=== PATIENT | male | born 1950 | race Caucasian/White ===

== ENCOUNTER 2018-05-31 09:40 | Emergency (ER) | payer MEDICARE, OTHER ==
--- NOTE | 2018-05-31 10:09 | ED Physician Documentation ---
PD HPI ALTERED MENTAL STATUS - Stated complaint Stated Complaint: CAN'T THINK STRAIGHT, AGGITATED - Chief complaint Chief Complaint: Cardiac - History obtained from History obtained from: Patient - History of Present Illness Timing - onset: Today Timing - duration: Hours Timing - details: Gradual onset (he says he was feeling some pressure feeling in sinuses and had taken some Atifed and Nuquil meds last evening. Today was feeling pressure frontal still and felt somewhat confused/foggy. No focal deficit. Able to talk coherently and ambulatory without ataxia. Took BP and it was elevated at 220/120. His usual is 130-140 ssytolic.) Quality / character: Confused (felt foggy/confused, but did not notice aphasia per se.) Associated symptoms: Headache (pressure frontal area). No: Fever, Stiff neck, Dyspnea, Cough, NVD Contributing factors: Recent illness (feeling of sinus allergies). No: Anticoagulated, Diabetic, New medication Basline status: Alert and oriented X 3, Ambulatory Similar symptoms before: Has not had sx before Recently seen: Not recently seen Review of Systems Constitutional: denies: Fever, Chills, Myalgias Ears: reports: Other. denies: Ear pain Nose: denies: Rhinorrhea / runny nose, Congestion Throat: denies: Sore throat Cardiac: denies: Chest pain / pressure, Palpitations Respiratory: denies: Dyspnea GI: denies: Abdominal Pain, Nausea, Vomiting, Diarrhea PD PAST MEDICAL HISTORY - Past Medical History Past Medical History: Yes Cardiovascular: Hypertension - Past Surgical History Past Surgical History: Yes - Present Medications Home Medications: Ambulatory Orders Medication Instructions Recorded Confirmed Acyclovir [Zovirax] 500 mg PO 05/31/18 Cetirizine [ZyrTEC] 10 mg PO DAILY #30 tablet 05/31/18 Losartan [Cozaar] 50 mg PO DAILY 05/31/18 05/31/18 Tadalafil 5 mg PO 05/31/18 - Allergies Allergies/Adverse Reactions: Allergies Allergy/AdvReac Type Severity Reaction Status Date / Time erythromycin base AdvReac Nausea Verified 05/31/18 10:28 Sulfa (Sulfonamide AdvReac Rash Verified 05/31/18 10:27 Antibiotics) - Social History Does the pt smoke?: No Smoking Status: Never smoker Does the pt drink ETOH?: Yes Does the pt have substance abuse?: No - Immunizations Immunizations are current?: Yes PD ED PE NORMAL - Vitals Vital signs reviewed: Yes - General General: Alert and oriented X 3, No acute distress, Well developed/nourished - HEENT HEENT: PERRL, EOMI, Pharynx benign - Neck Neck: Supple, no meningeal sign, No adenopathy - Cardiac Cardiac: RRR, No murmur - Respiratory Respiratory: Clear bilaterally - Abdomen Abdomen: Soft, Non tender - Back Back: No CVA TTP - Derm Derm: Normal color, Warm and dry - Extremities Extremities: No tenderness to palpate, Normal ROM s pain - Neuro Neuro: Alert and oriented X 3, veneer puller 2-12 intact, No motor deficit, No sensory deficit, Normal speech Eye Opening: Spontaneous Motor: Obeys Commands Verbal: Oriented GCS Score: 15 Results - Vitals Vitals: Vital Signs - 24 hr 05/31/18 05/31/18 05/31/18 09:50 09:51 10:20 Temperature 36.1 C L Heart Rate 75 65 Respiratory 16 17 Rate Blood Pressure 177/152 H 200/96 H 164/94 H O2 Saturation 99 98 05/31/18 11:46 Temperature Heart Rate 66 Respiratory 18 Rate Blood Pressure 149/74 H O2 Saturation 99 Oxygen O2 Source Room air - Labs Labs: Laboratory Tests 05/31/18 05/31/18 05/31/18 10:20 10:20 10:20 WBC 6.5 RBC 4.72 Hgb 15.4 Hct 45.6 MCV 96.6 H MCH 32.6 H MCHC 33.7 RDW 12.6 Plt Count 150 MPV 9.2 Neut # (Auto) 4.7 Lymph # (Auto) 1.0 L Harmon # (Auto) 0.6 Eos # (Auto) 0.1 Baso # (Auto) 0.0 Absolute Nucleated RBC 0.00 Nucleated RBC % 0.0 Sodium 137 Potassium 3.8 Chloride 99 L Carbon Dioxide 27 Anion Gap 11.0 BUN 16 Creatinine 0.9 Estimated GFR (MDRD) 83 L Glucose 104 H Calcium 9.5 Magnesium 2.0 Total Bilirubin 0.9 AST 25 ALT 20 Alkaline Phosphatase 68 Troponin I < 0.04 Total Protein 7.8 Albumin 4.6 Globulin 3.2 Albumin/Globulin Ratio 1.4 Lipase 29 PD MEDICAL DECISION MAKING - ED course Complexity details: reviewed results, re-evaluated patient (feeling okay and BP has improved without intervention. ), considered differential (no focal symptoms and the description is of just feeling confused. BP elevated, but whether primary or secondary. He is feeling better as BP goes down on its own. ), d/w patient Departure - Departure Disposition: 01 Home, Self Care Clinical Impression: Hypertensive urgency Altered mental status Qualifiers: Altered mental status type: unspecified Qualified Code(s): R41.82 - Altered mental status, unspecified Condition: Stable Record reviewed to determine appropriate education?: Yes Instructions: ED Confusion Prescriptions: Cetirizine [ZyrTEC] 10 mg PO DAILY #30 tablet Comments: Your blood pressure is coming down to a reasonable level on its own. At this point I would not want to give extra medicine for worry of having to go to low which will happen sometimes. I would suggest continuing your usual blood pressure medicines. Avoid any decongestant medications at this can increase her blood pressure. For your sinus congestion, we can use a few days of a steroid anti-inflammatory and also an antihistamine instead to improve some of your symptoms. This should not affect her blood pressure. Check your blood pressure once or twice daily at most over the next several days to week and see if it is more consistently high or back to your normal before deciding any blood pressure medicine adjustments. Return if recurrent symptoms. Discharge Date/Time: 05/31/18 11:57
[2018-05-31 10:45] LABS: BASOPHILS % (AUTO) 0.5 %; EOSINOPHILS # (AUTO) 0.1 10^3/uL (0.0-0.7); EOSINOPHILS % (AUTO) 1.4 %; HGB - HEMOGLOBIN 15.4 g/dL (14.0-18.0); MEAN CORPUSCULAR HEMOGLOBIN 32.6 pg (27.0-31.0); MEAN CORPUSCULAR HGB CONC 33.7 g/dL (32.0-36.0); MEAN CORPUSCULAR VOLUME 96.6 fL (80.0-94.0); MEAN PLATELET VOLUME 9.2 fL (7.4-11.4); MONOCYTES # (AUTO) 0.6 10^3/uL (0.0-1.0); NEUTROPHILS # (AUTO) 4.7 10^3/uL (1.5-6.6); NEUTROPHILS % (AUTO) 73.1 %; PLT - PLATELET COUNT 150 10^3/uL (130-450); RED BLOOD COUNT 4.72 10^6/uL (4.70-6.10); RED CELL DISTRIBUTION WIDTH 12.6 % (12.0-15.0); WHITE BLOOD COUNT 6.5 x10^3/uL (4.8-10.8)
[2018-05-31 10:59] LABS: ALBUMIN 4.6 g/dL (3.2-5.5); ALBUMIN/GLOBULIN RATIO 1.4 (1.0-2.2); BILIRUBIN,TOTAL 0.9 mg/dL (0.2-1.0); CALCIUM 9.5 mg/dL (8.5-10.3); CREATININE 0.9 mg/dL (0.6-1.2); TOTAL PROTEIN 7.8 g/dL (6.7-8.2)
[2018-05-31] MEDS ORDERED: CETIRIZINE 10 MG TABLET PO STA (11:21)
[2018-05-31] MEDS ORDERED: DEXAMETHASONE 10 MG/ML VIAL PO STA (11:21)
[2018-05-31] MEDS ORDERED: CHERRY SYRUP 10 ML UDC PO ONE ×2 (11:40→11:47)
[2018-05-31 11:47] VITALS: BP 149/74
== END 2018-05-31 11:57 | disposition home or self-care (01) ==
LOC: ED 09:40
DX: I16.0 Hypertensive urgency (principal); R41.82 Altered mental status, unspecified; I10 Essential (primary) hypertension
CPT/HCPCS: 36415; 80053; 83690; 83735; 84484; 85025; 93005; 99284; A9270

== ENCOUNTER 2018-06-17 07:52 | Outpatient (CLI) | payer MEDICARE, OTHER ==
[2018-06-17 11:34] LABS: BASOPHILS % (AUTO) 0.7 %; EOSINOPHILS # (AUTO) 0.2 10^3/uL (0.0-0.7); EOSINOPHILS % (AUTO) 4.1 %; HGB - HEMOGLOBIN 14.8 g/dL (14.0-18.0); LYMPHOCYTES # (AUTO) 1.1 10^3/uL (1.5-3.5); MEAN CORPUSCULAR HEMOGLOBIN 32.2 pg (27.0-31.0); MEAN CORPUSCULAR HGB CONC 33.2 g/dL (32.0-36.0); MEAN CORPUSCULAR VOLUME 96.9 fL (80.0-94.0); MEAN PLATELET VOLUME 9.6 fL (7.4-11.4); MONOCYTES # (AUTO) 0.5 10^3/uL (0.0-1.0); MONOCYTES % (AUTO) 9.3 %; NEUTROPHILS % (AUTO) 67.9 %; PLT - PLATELET COUNT 140 10^3/uL (130-450); RED BLOOD COUNT 4.59 10^6/uL (4.70-6.10); RED CELL DISTRIBUTION WIDTH 12.5 % (12.0-15.0); WHITE BLOOD COUNT 5.9 x10^3/uL (4.8-10.8)
[2018-06-17 11:47] LABS: ALBUMIN 4.2 g/dL (3.2-5.5); ALBUMIN/GLOBULIN RATIO 1.5 (1.0-2.2); ALKALINE PHOSPHATASE 61 IU/L (42-121); ALT ALANINE AMINOTRANSFERASE 16 IU/L (10-60); AST ASPARTATE AMINOTRANSFERASE 21 IU/L (10-42); BILIRUBIN,TOTAL 0.9 mg/dL (0.2-1.0); BUN - BLOOD UREA NITROGEN 18 mg/dL (6-20); CARBON DIOXIDE - CO2 27 mmol/L (21-32); CHLORIDE 104 mmol/L (101-111); CHOL/HDL RATIO 3.1 (<5.0); CHOLESTEROL 160 mg/dL; CREATININE 0.8 mg/dL (0.6-1.2); GFR - MDRD 96 (>89); GLUCOSE 100 mg/dL (70-100); HDL CHOLESTEROL 51 mg/dL; LDL CHOLESTEROL,CALCULATED 96 mg/dL; LDL/HDL RATIO 1.9 (<3.6); SODIUM 139 mmol/L (135-145); VLDL CHOLESTEROL 13 mg/dL
[2018-06-17 11:58] LABS: HB2 TOTAL 16.6 g/dL; HEMOGLOBIN A1C 0.64 g/dL; HEMOGLOBIN A1C % 5.7 % (4.6-6.2)
== END 2018-06-17 07:53 | disposition home or self-care (01) ==
LOC: LAB.F 07:52
PROVIDERS: ATTEND Registered Nurse
DX: Z00.00 Encounter for general adult medical examination without abnormal findings (principal); I10 Essential (primary) hypertension
CPT/HCPCS: 36415; 80053; 80061; 83036; 83721; 84443; 85025

== ENCOUNTER 2020-08-19 09:04 | Outpatient (CLI) | payer MEDICARE ==
[2020-08-19 15:42] LABS: ALBUMIN 4.6 g/dL (3.2-5.5); BILIRUBIN,DIRECT 0.2 mg/dL (0.1-0.5); BILIRUBIN,TOTAL 1.1 mg/dL (0.2-1.0); TOTAL PROTEIN 7.4 g/dL (6.7-8.2)
== END 2020-08-19 09:05 | disposition home or self-care (01) ==
LOC: LAB.S 09:04
PROVIDERS: ATTEND Internal Medicine
DX: R74.01 Elevation of levels of liver transaminase levels (principal)
CPT/HCPCS: 36415; 80076

== ENCOUNTER 2020-09-21 08:16 | Outpatient (CLI) | payer MEDICARE ==
[2020-09-21 15:18] LABS: % IRON SATURATION 35 % (20-50); IRON 122 ug/dL (45-182); TOTAL IRON BINDING CAPACITY 351 ug/dL (250-450); TRANSFERRIN 251 mg/dL (180-329)
[2020-09-22 12:11] LABS: HEPATITIS B SURFACE ANTIGEN NON-REACTIVE (NON-REACTIVE)
== END 2020-09-21 08:17 | disposition home or self-care (01) ==
LOC: LAB.S 08:16
PROVIDERS: ATTEND Internal Medicine
DX: R74.8 Abnormal levels of other serum enzymes (principal)
CPT/HCPCS: 36415; 81256; 83540; 84466; 87340

== ENCOUNTER 2020-10-10 11:12 | Outpatient (CLI) | payer MEDICARE ==
--- NOTE | 2020-10-10 12:39 | Ultrasound Report ---
PROCEDURE: Abdomen Limited INDICATIONS: ELEVATED LIVER ENZYMES TECHNIQUE: Real-time focused scanning was performed of the abdomen, with image documentation. COMPARISON: None FINDINGS: Liver is normal in size and shows a generalized increased echogenicity. No focal mass lesion present. No intrahepatic biliary ductal dilatation. Gallbladder is sonolucent without shadowing calculi or color wall thickening. No sonographic Herndon s ign or pericholecystic fluid. Common bile duct 4 mm. IMPRESSION: Hepatic fatty infiltration without cholelithiasis. Reviewed by: Justyn Sykes MD on 10/10/2020 11:38 AM [facility] Approved by: Justyn Sykes MD on 10/10/2020 11:38 AM [facility] Station ID: [id number]
== END 2020-10-10 11:13 | disposition home or self-care (01) ==
LOC: DI 11:12
PROVIDERS: ATTEND Internal Medicine
DX: K76.0 Fatty (change of) liver, not elsewhere classified (principal)

== ENCOUNTER 2021-07-01 08:11 | Outpatient (CLI) | payer MEDICARE ==
[2021-07-01 14:53] LABS: BASOPHILS # (AUTO) 0.1 10^3/uL (0.0-0.1); BASOPHILS % (AUTO) 0.8 %; EOSINOPHILS # (AUTO) 0.3 10^3/uL (0.0-0.7); HCT - HEMATOCRIT 45.5 % (42.0-52.0); HGB - HEMOGLOBIN 15.6 g/dL (14.0-18.0); LYMPHOCYTES # (AUTO) 1.6 10^3/uL (1.5-3.5); LYMPHOCYTES % (AUTO) 25.2 %; MEAN CORPUSCULAR HEMOGLOBIN 33.5 pg (27.0-31.0); MEAN CORPUSCULAR HGB CONC 34.3 g/dL (32.0-36.0); MEAN CORPUSCULAR VOLUME 97.8 fL (80.0-94.0); MEAN PLATELET VOLUME 11.7 fL (7.4-11.4); MONOCYTES # (AUTO) 0.8 10^3/uL (0.0-1.0); MONOCYTES % (AUTO) 12.3 %; NEUTROPHILS # (AUTO) 3.5 10^3/uL (1.5-6.6); NEUTROPHILS % (AUTO) 56.2 %; PLT - PLATELET COUNT 158 10^3/uL (130-450); RED BLOOD COUNT 4.65 10^6/uL (4.70-6.10); WHITE BLOOD COUNT 6.2 x10^3/uL (4.8-10.8)
[2021-07-01 15:38] LABS: PSA TOTAL 0.337 ng/mL (0.000-2.000)
[2021-07-01 15:50] LABS: ALBUMIN 4.2 g/dL (3.2-5.5); ALBUMIN/GLOBULIN RATIO 1.6 (1.0-2.2); BILIRUBIN,TOTAL 0.9 mg/dL (0.2-1.0); CALCIUM 9.3 mg/dL (8.5-10.3); CREATININE 0.9 mg/dL (0.6-1.2); TOTAL PROTEIN 6.9 g/dL (6.7-8.2)
[2021-07-01 15:59] LABS: THYROID STIMULATING HORMONE 2.23 uIU/mL (0.34-5.60)
== END 2021-07-01 08:12 | disposition home or self-care (01) ==
LOC: LAB.S 08:11
PROVIDERS: ATTEND Nurse Practitioner Family
DX: I10 Essential (primary) hypertension (principal); Z12.5 Encounter for screening for malignant neoplasm of prostate
CPT/HCPCS: 36415; 80053; 84153; 84443; 85025

== ENCOUNTER 2022-03-20 10:43 | Outpatient (CLI) | payer MEDICARE ==
--- NOTE | 2022-03-20 12:30 | XRAY Report ---
PROCEDURE: Chest 2 View X-Ray INDICATIONS: RIGHT LOWER LOBE PNA TECHNIQUE: 2 views of the chest were acquired. COMPARISON: None FINDINGS: Surgical changes and devices: None. Lungs and pleura: No pleural effusions or pneumothorax. Eventration of both hemidiaphragms. There is mild bibasilar reticulation and slight bronchial wall thickening. No dense consolidations. Mediastinum: Mediastinal contours are normal. Heart size is normal. There are calcified small nodu les in the right hilar region. Bones and chest wall: No suspicious bony abnormalities. Soft tissues appear unremarkable. IMPRESSION: 1. Mild bibasilar reticulation and bronchial wall thickening suggesting bronchitis. 2. No focal pneumonia. 3. Prior exposure to granulomatous disease. Reviewed by: Rosi Ann MD on 03/20/2022 11:28 AM [facility] Approved by: Rosi Ann MD on 03/20/2022 11:28 AM [facility] Station ID: [id number]
== END 2022-03-20 10:44 | disposition home or self-care (01) ==
LOC: DI.S 10:43
PROVIDERS: ATTEND Physician Assistant
DX: R91.8 Other nonspecific abnormal finding of lung field (principal)

== ENCOUNTER 2023-01-15 11:15 | Outpatient (CLI) | payer MEDICARE | END 2023-01-15 11:30 | disposition home or self-care (01) | LOC: LAB.N 11:15 | PROVIDERS: ATTEND Physician Assistant Medical | DX: N41.9 Inflammatory disease of prostate, unspecified (principal) | CPT/HCPCS: 87086 ==

== ENCOUNTER 2023-01-26 11:32 | Outpatient (CLI) | payer MEDICARE | END 2023-01-26 11:33 | disposition home or self-care (01) | LOC: LAB.S 11:32 | PROVIDERS: ATTEND Physician Assistant Medical | DX: N41.9 Inflammatory disease of prostate, unspecified (principal) | CPT/HCPCS: 36415; 84153 ==

== ENCOUNTER 2023-02-01 10:17 | Outpatient (CLI) | payer MEDICARE ==
[2023-02-01 10:45] LABS: CALCIUM 9.8 mg/dL (8.5-10.3); CREATININE 0.8 mg/dL (0.6-1.3); POTASSIUM 3.5 mmol/L (3.5-4.5)
== END 2023-02-01 10:18 | disposition home or self-care (01) ==
LOC: LAB 10:17
PROVIDERS: ATTEND Urology
DX: R33.9 Retention of urine, unspecified (principal)
CPT/HCPCS: 36415; 80048